=== PATIENT | female | born 1955 | race Caucasian/White ===

== ENCOUNTER 2019-11-26 19:55 | Emergency (ER) | payer MEDICARE, BC ==
[~2019-11-26] VITALS: Ht 177.8 cm; Wt 145.5 kg
[2019-11-26 20:00] VITALS: BP 139/80; TEMP 98
[2019-11-26] MEDS ORDERED: CALCITRIOL PO (20:04)
[2019-11-26] MEDS ORDERED: PAMELOR75 MG PO (20:04)
[2019-11-26] MEDS ORDERED: DULCOLAX STOOL100 MG PO (20:05)
[2019-11-26] MEDS ORDERED: FLEXERIL 1010 MG/TAB PO (20:05)
[2019-11-26] MEDS ORDERED: BUMEX2 MG PO (20:05)
[2019-11-26] MEDS ORDERED: ZYLOPRIM 100MG100 MG PO (20:05)
[2019-11-26] MEDS ORDERED: ANTIVERT 12.512.5 MG PO (20:05)
[2019-11-26] MEDS ORDERED: NORVASC 5MG5 MG/TAB PO (20:06)
[2019-11-26] MEDS ORDERED: ALDACTONE 25MG25 M1 PO (20:06)
[2019-11-26] MEDS ORDERED: REQUIP XL2 MG PO (20:06)
[2019-11-26 21:02] LABS: BASO % 0.4 % (0.0-2.0); EOS # 0.1 (0.0-0.7); EOS % 0.9 % (0-4.0); GRAN # 5.4 (1.4-6.5); GRAN % 66.4 % (42.2-75.2); HEMATOCRIT 37.8 % (37.0-47.0); LYMPH # 1.9 (1.2-3.4); LYMPH % 23.8 % (20.0-51.0); MEAN CELL VOLUME 85 fl (80.0-100.0); MEAN CORPUSCULAR HEMOGLOBIN 27 pg (27.0-31.0); MEAN CORPUSCULAR HGB CONC 32 g/dl (33.0-37.0); MEAN PLATELET VOLUME 10.8 fl (7.4-10.4); MONO # 0.7 (0.1-0.6); MONO % 8.3 % (1.7-9.3); PLATELET COUNT 288 K/mm3 (130-400); RED BLOOD COUNT 4.46 M/mm3 (4.10-5.30); REDCELL DISTRIBUTION WIDTH-CV 16.9 % (11.5-14.5)
[2019-11-26 21:14] LABS: BILIRUBIN,TOTAL 0.4 mg/dL (0.0-1.0); POTASSIUM 3.6 mmol/L (3.4-5.0); TOTAL PROTEIN 6.8 gm/dL (6.4-8.2)
[2019-11-26 21:21] LABS: PROTHROMBIN TIME 11.2 SECONDS (9.7-12.8)
[2019-11-26 21:41] LABS: CALCIUM 9.7 mg/dL (8.4-10.2); CREATININE, serum 2.02 (0.52-1.25)
[2019-11-26 22:30] VITALS: PULSE 99
== END 2019-11-26 22:37 | disposition home or self-care (01) ==
LOC: COL.ER 19:55
PROVIDERS: Emergency Medicine
DX: N93.9 Abnormal uterine and vaginal bleeding, unspecified (principal); K59.00 Constipation, unspecified; R89.1 Abnormal level of hormones in specimens from other organs, systems and tissues